=== PATIENT | male | born 1975 | race Caucasian/White ===

== ENCOUNTER → 2016-07-18 | Outpatient (CLI) | payer MEDICAID ==
[~2016-07-18] MED LIST: CEFD300C PO; CLIN-78 PO; CPR500T PO; LORA10CA PO; MNTL10T PO
[2016-07-18 14:02] VITALS: BP 125/84
--- NOTE | 2016-07-18 14:02 | Urgent Care T Sheet Gen (E) ---
Intake General Temperature (Fahrenheit): 98.1 Pulse: 79 Blood Pressure Systolic: 125 Blood Pressure Diastolic: 84 Respirations: 18 SPO2: 97 Description of Symptoms Patient presents with nasal congestion x 10 days. patient states he had trauma to his forehead several years ago and that causes chronic sinus infections. patient was just on an antibiotic a month or two ago. States his congestion has worsened over the past few days. No fever. Mucinex and Claritin isn't helping. History of Present Illness Allergies: Coded Allergies: Penicillins (Verified Allergy, Unknown, TRUE ALLERGY, 01/18/16) Home Meds Active Scripts Ciprofloxacin HCl (Cipro)500 Mg [id number] Mg PO BID Infection #14 TAB Ref 0 Prov:MONICA LINDO 07/18/16 Reported Medications Clindamycin HCl 150 Mg Gkjzkud375 Mg PO TID Infection Ref 0 06/21/16 Montelukast Sodium 10 Mg Mnsqxk27 Mg PO NEEDED 01/18/16 Loratadine (Claritin)10 Mg Yncwiyo25 Mg PO NEEDED 01/18/16 Respiratory Constitutional Symptoms: No Fever, Malaise EENTM: Nose Congestion Respiratory: No symptoms reported Cardiovascular: No symptoms reported Gastrointestinal/Abdominal: No symptoms reported Neurological: Headache All Other Systems Reviewed Remaining Systems: All other systems reviewed with negative findings Past Diqixtp-Fczhpl-Tdybfi Hx Patient's Social History Alcohol Use: Occasionally Uses Smoking Status: Current every day smoker Recent foreign travel: No Surgeries/Hospitalizations Hospitalization/Surgery Hx: right knee scope , HEAD INJURY WITH SCALP LACERATIONS, ORBITAL FRACTURE INVOLVING LT EYE WISDOM TEETH Respiratory Respiratory History: Asthma Cardiovascular Cardiovascular History: None Neuro/Muscular Comment: 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 tender over frontal sinuses) Neck Exam: SuppleNo Lymphadenopathy Respiratory Exam: Lungs clear Normal breath sounds Cardiovascular Exam: Regular rate, rhythm Departure Urgent Care Impression Impression: Primary Impression: Sinusitis Qualified Code: J01.10 - Acute frontal sinusitis, unspecified Departure Disposition: HOME OR SELF-CARE Condition: Stable Referrals: MITCH CAPUTO MD (PCP) Additional Instructions: I am treating based off his history and length of illness. His nose didn't look too terribly bad and his nasal drainage wasn't purulent The patient states that Cipro is what he usually takes for sinus infections. Rest. Fluids F/U with PCP as needed Patient understands DC instructions. All questions were answered. Scripts Ciprofloxacin HCl (Cipro)500 Mg Oyfwjn410 Mg PO BID Infection #14 TAB Ref 0 Prov:MONICA LINDO 07/18/16 End of report . MONICA LINDO Jul 18, 2016 13:00
== END ==
LOC: MHUC 12:39
PROVIDERS: ATTEND Physician Assistant
DX: J01.10 Acute frontal sinusitis, unspecified (principal)
CPT/HCPCS: 99213

== ENCOUNTER → 2016-10-12 | Outpatient (CLI) | payer MEDICAID ==
[2016-10-12 17:25] VITALS: BP 137/90
--- NOTE | 2016-10-12 17:25 | Urgent Care T Sheet Gen (E) ---
Intake General Temperature (Fahrenheit): 98.2 Pulse: 84 Blood Pressure Systolic: 137 Blood Pressure Diastolic: 90 Respirations: 18 SPO2: 98 Chief Complaint: UC Ear/Nose/Throat Complaint Description of Symptoms Complains of sore throat and fever and ear pain. Son was diagnosed with strep yesterday, no rash no vomiting, no chills but feels achey. Source: Patient History of Present Illness Onset & Duration: Days Timing: Still present Severity: Mild Associated Symptoms: Cough, Loss of appetite, Sinus congestion Recent Trauma: No Allergies: Coded Allergies: Penicillins (Verified Allergy, Unknown, TRUE ALLERGY, 01/18/16) Home Meds Active Scripts Ciprofloxacin HCl (Cipro)500 Mg Wofpay491 Mg PO BID Infection #14 TAB Ref 0 Prov:MONICA LINDO 07/18/16 Reported Medications Clindamycin HCl 150 Mg Ypjgndn350 Mg PO TID Infection Ref 0 06/21/16 Montelukast Sodium 10 Mg Clxpzh43 Mg PO NEEDED 01/18/16 Loratadine (Claritin)10 Mg Hqpsgvu01 Mg PO NEEDED 01/18/16 Respiratory Constitutional Symptoms: Fever EENTM: Ear pain Nose Congestion Throat pain Respiratory: Cough Cardiovascular: No symptoms reported Gastrointestinal/Abdominal: No symptoms reported Genitourinary: No symptoms reported Musculoskeletal: No symptoms reported All Other Systems Reviewed Remaining Systems: All other systems reviewed with negative findings Past Gviliyy-Nkdiwj-Xzvaun Hx Patient's Social History Alcohol Use: Occasionally Uses Smoking Status: Current every day smoker Recent foreign travel: No Surgeries/Hospitalizations Hospitalization/Surgery Hx: right knee scope , HEAD INJURY WITH SCALP LACERATIONS, ORBITAL FRACTURE INVOLVING LT EYE WISDOM TEETH Respiratory Respiratory History: Asthma Cardiovascular Cardiovascular History: None Neuro/Muscular Comment: 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 Reproductive System Sexually Transmitted Diseases: No Gastrointestinal GI/Endocrine History: Gallbladder problems Diabetes Diabetes: NIDDM Exercise controlled HEENT Impaired Vision: Glasses Hearing Impaired: None Integumentary Integumentary History: Recent skin changes Comment: LT FOREHEAD SUTURES INTACT Psychosocial Behavior Disorders: None Physical Exam Physical Exam General Appearance: WD/WN No apparent distress Eyes, Ears, Nose, Throat Ex: PERRL/EOMI TM abnormal (R) (dull fluid) TM abnormal (L) (dull fluid) Pharyngeal erythema (moderate) Other (nares red and swollen) Neck Exam: Full range of motion Supple Normal inspectionNo Lymphadenopathy Respiratory Exam: Lungs clear Normal breath sounds No respiratory distress No accessory muscles usedNo Accessory muscle use, No Wheezes Cardiovascular Exam: Regular rate, rhythm GI/ Exam: Non tender No organomegaly Normal bowel sounds Skin Exam: Normal color Warm/dry/intact No rashes Neurologic/Psychiatric Exam: Oriented times 4 Progress/Orders Lab Results Labs Results: Rapid Strep (negative) Departure Urgent Care Impression Chief Complaint: Ear/Nose/Throat Complaint Impression: Primary Impression: Pharyngitis Qualified Code: J02.9 - Acute pharyngitis, unspecified Departure Disposition: HOME OR SELF-CARE Condition: Stable Referrals: MITCH CAPUTO MD (PCP) Additional Instructions: long talk with Dad- due to symptoms and findings will opt to treat- also exposure in house Tylenol for pain or fever push fluid rest hydrate change tooth brush in 48 hours. He agrees to plan of care f/u PCP as needed Scripts Cefdinir 300 Mg [id number] Mg PO BID Infection #20 CAP Ref 0 Prov:JOHN SHERWOOD APRN () 10/12/16 End of report . JOHN SHERWOOD APRN () Oct 12, 2016 17:25
== END ==
LOC: MHUC 16:53
PROVIDERS: ATTEND Physician Assistant
DX: J02.9 Acute pharyngitis, unspecified (principal)
CPT/HCPCS: 87880; 99213

== ENCOUNTER → 2016-12-05 | Outpatient (CLI) | payer MEDICAID ==
[~2016-12-05] MED LIST changes: +DOXY100C2 PO
[2016-12-05 11:55] VITALS: BP 132/80
--- NOTE | 2016-12-05 11:55 | Urgent Care T Sheet Gen (E) ---
Intake General Temperature (Fahrenheit): 99.0 Pulse: 78 Blood Pressure Systolic: 132 Blood Pressure Diastolic: 80 Respirations: 18 SPO2: 97 Description of Symptoms patient presents with illness x 1 week. Notes sinus congestion and FRIAS. L ear pain and gland tenderness started yesterday. No fever. Been taking Mucinex which isn't helping any more. Patient has anaphylactic reaction to PCN drugs. History of Present Illness Allergies: Coded Allergies: Penicillins (Verified Allergy, Unknown, TRUE ALLERGY, 01/18/16) Home Meds Active Scripts Cefdinir 300 Mg Osdefrr315 Mg PO BID Infection #20 CAP Ref 0 Prov:JOHN SHERWOOD APRN ([facility]) 10/12/16 Ciprofloxacin HCl (Cipro)500 Mg Wcwyer170 Mg PO BID Infection #14 TAB Ref 0 Prov:MONICA LINDO PA 07/18/16 Reported Medications Clindamycin HCl 150 Mg [id number] Mg PO TID Infection Ref 0 06/21/16 Montelukast Sodium 10 Mg Loecxb08 Mg PO NEEDED 01/18/16 Loratadine (Claritin)10 Mg Bgngeym26 Mg PO NEEDED 01/18/16 Respiratory Constitutional Symptoms: No syptoms reported EENTM: Ear pain Nose Congestion Respiratory: No symptoms reported Cardiovascular: No symptoms reported Gastrointestinal/Abdominal: No symptoms reported Neurological: Headache All Other Systems Reviewed Remaining Systems: All other systems reviewed with negative findings Past Uisvwir-Aazaam-Xbhqzr Hx Patient's Social History Alcohol Use: Occasionally Uses Smoking Status: Current every day smoker Recent foreign travel: No Surgeries/Hospitalizations Hospitalization/Surgery Hx: right knee scope , HEAD INJURY WITH SCALP LACERATIONS, ORBITAL FRACTURE INVOLVING LT EYE WISDOM TEETH Respiratory Respiratory History: Asthma Cardiovascular Cardiovascular History: None Neuro/Muscular Comment: 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 Reproductive System Sexually Transmitted Diseases: No Gastrointestinal GI/Endocrine History: Gallbladder problems Diabetes Diabetes: NIDDM Exercise controlled HEENT Impaired Vision: Glasses Hearing Impaired: None Integumentary Integumentary History: Recent skin changes Comment: LT FOREHEAD SUTURES INTACT Psychosocial Behavior Disorders: None Physical Exam Physical Exam General Appearance: WD/WN No apparent distress Eyes, Ears, Nose, Throat Ex: Pharynx normal TM abnormal (L) (red, bulging.) Pharyngeal erythema (PND) Other (nose is congested with swollen nasal turbinates ; non tender over frontal and maxillary sinuses.) Neck Exam: Supple Lymphadenopathy (along L ear) Respiratory Exam: Lungs clear Normal breath sounds Cardiovascular Exam: Regular rate, rhythm Departure Urgent Care Impression Impression: Primary Impression: Otitis media Qualified Code: H66.002 - Acute suppurative otitis media without spontaneous rupture of ear drum, left ear Additional Impression: Sinusitis Qualified Code: J01.80 - Other acute sinusitis Departure Disposition: HOME OR SELF-CARE Condition: Stable Referrals: MITCH CAPUTO MD (PCP) Additional Instructions: With his PCN allergy, I am somewhat limited. Patient states [employer] and G[employer]'s no long work for him. I therefore prescribed Doxycycline for his OM and sinus infection. Rest. Fluids Return as needed patient understands Dc instructions. All questions were answered. Scripts Doxycycline Hyclate 100 Mg Jaazjix694 Mg PO BID Infection #14 CAP Ref 0 Prov:MONICA LINDO 12/05/16 End of report . MONICA LINDO December 05, 2016 11:55
== END ==
LOC: MHUC 11:25
PROVIDERS: ATTEND Physician Assistant
DX: H66.002 Acute suppurative otitis media without spontaneous rupture of ear drum, left ear (principal); J01.80 Other acute sinusitis
CPT/HCPCS: 99213